=== PATIENT | female | born 1990 | race Caucasian/White ===

== ENCOUNTER 2016-04-28 22:06 | Emergency (ER) | payer BC, MEDICAID ==
[2016-04-29 00:34] LABS: URINE BILIRUBIN NEGATIVE (NEGATIVE); URINE BLOOD 4+ (NEGATIVE); URINE GLUCOSE (UA) NEGATIVE (NEGATIVE); URINE LEUKOCYTE ESTERASE NEGATIVE (NEGATIVE); URINE NITRITE NEGATIVE (NEGATIVE); URINE PROTEIN NEGATIVE (NEGATIVE); URINE UROBILINOGEN NORMAL (0-1 mg/dl)
[2016-04-29 00:42] LABS: URINE APPEARANCE SL CLOUDY; URINE COLOR YELLOW
[2016-04-29 00:44] LABS: URINE BACTERIA TRACE; URINE MUCUS 2+; URINE WBC 0-1 /hpf
--- NOTE | 2016-04-29 07:50 | US ---
Exam: Complete obstetric ultrasound less than 14 weeks COMPARISON: None INDICATION: and bleeding. FINDINGS: Transabdominal and transvaginal obstetric ultrasound less than 14 weeks was obtained. Real-time sonographic imaging demonstrated evidence of an intrauterine , with a crown-rump length of 5 mm which correlates with a gestational age of 6 weeks 2 days and a sonographic JUAN JOSÉ of 12/20/2016. No cardiac activity is seen within the embryo. Normal yolk sac is seen. Gestational sac is normal in size and contour, with a mean sac diameter of 1.4 cm. Right ovary measures 2.8 x 1.7 x 2.6 cm and left ovary measures 3.2 x 2.1 x 2.5 cm. A 1.5 cm cyst is noted in the left ovary, of no clinical concern. Right ovary is unremarkable. Blood flow is present within both ovaries. There is no significant free fluid in the cul-de-sac. IMPRESSION: Evidence of an intrauterine , however cardiac activity is not identified within the embryo. Sometimes cardiac activity is not seen until the embryo reaches 7 mm, therefore viability is uncertain. Consider follow-up ultrasound in one week if clinically indicated. Preliminary report transmitted to the emergency department from [facility] at 0102 hours 04/29/2016.
== END 2016-04-29 02:15 | disposition home or self-care (01) ==
LOC: ED 22:06
DX: O20.0 Threatened abortion (principal); O99.211 Obesity complicating pregnancy, first trimester; E66.01 Morbid (severe) obesity due to excess calories; Z3A.01 Less than 8 weeks gestation of pregnancy